=== PATIENT | male | born 1960 | race Caucasian/White ===

== ENCOUNTER 2021-12-14 14:30 | Observation (INO) | payer BC ==
[2021-12-14] MEDS ORDERED: Sodium Chloride 0.9% 1000 ML 1,000 ML IV STA (15:06)
[2021-12-14] MEDS ORDERED: TYLENOL 325 MG PO PRN (15:07)
[2021-12-14 15:57] LABS: INFLUENZA A NEGATIVE (NEGATIVE); INFLUENZA B NEGATIVE (NEGATIVE); RESPIRATORY SYNCTIAL VIRUS NEGATIVE (Negative); SARS-CoV-2 Xpert Express NEGATIVE (NEGATIVE)
[2021-12-14] MEDS ORDERED: HUMALOG SQ PRN (16:16)
--- NOTE | 2021-12-14 16:21 | PCM.HP ---
History of Present Illness - Chief Complaint Chief Complaint: acute renal failure History of Present Illness: is a 61 year old male who was seen in [facility] care today for vomiting, diarrhea and feeling weak and poor since yesterday, cramping pain in the abdomen, no fever. patient has a cardiac history and type 2 diabetes. had shoulder surgery at [facility] 3 weeks ago. - Review of Systems Constitutional: No Fever, No Chills Respiratory: No Cough, No Short Of Breath Cardiac: No Chest Pain, No Edema, No Syncope Abdominal/Gastrointestinal: Abdominal Pain, Nausea, Vomiting, Diarrhea Skin: No Rash All Other Systems: Reviewed and Negative Medications & Allergies Home Medications: Home Medication List Apixaban [Eliquis 5 mg Tablet] 1 tab PO BID 11/26/15 [History Confirmed 11/26/15] Carvedilol 3.125 mg [Coreg 3.125 MG] 1 tab PO DAILY 11/26/15 [History Confirmed 11/26/15] Clonazepam 0.5 mg [Klonopin 0.5 MG] 1 tab PO HS 11/26/15 [History Confirmed 11/26/15] Duloxetine HCl [Cymbalta] 1 cap PO DAILY 11/26/15 [History Confirmed 11/26/15] Fenofibrate 1 tab PO DAILY 11/26/15 [History Confirmed 11/26/15] Pravastatin Sodium 1 tab PO UD 11/26/15 [History Confirmed 11/26/15] Quetiapine Fumarate [Seroquel] 1 tab PO DAILY 11/26/15 [History Confirmed 11/26/15] Ramipril 1.25 mg [Altace 1.25 MG] 1 tab PO DAILY 11/26/15 [History Confirmed 11/26/15] Magnesium Oxide 800 mg PO TID 11/27/15 [History Confirmed 11/27/15] Allergies/Adverse Reactions: Allergies Allergy/AdvReac Type Severity Reaction Status Date / Time morphine AdvReac Intermediate Skin Verified 11/26/15 10:34 Irritation codeine AdvReac Skin Verified 11/26/15 10:34 Irritation - Past Medical History Past Medical History: Yes Neurological History: No Pertinent History ENT History: No Pertinent History Cardiac History: Arrhythmia, High Cholesterol, Hypertension, Other Respiratory History: No Pertinent History Endocrine Medical History: No Pertinent History Musculoskelatal History: Arthritis, Degenerative Disk Disease GI Medical History: Hernia History: No Pertinent History Pyscho-Social History: Anxiety, Depression Male Reproductive Disorders: No Pertinent History - Past Surgical History Past Surgical History: Yes Neuro Surgical History: No Pertinent History Cardiac History: Cardiac Catheterization Respiratory Surgery: No Pertinent History GI Surgical History: Cholecystectomy, Hernia Repair Genitourinary Surgical Hx: No Pertinent History Musculskeletal Surgical Hx: Orthopedic Surgery Male Surgical History: Vasectomy Other Surgical History: left knee, left shoulder, right wrist, - Social History Smoking Status: Former smoker Exposure to second hand smoke: No Alcohol: None Drug Use: none - Physical Exam General Appearance: no apparent distress Neurologic Exam: alert, oriented x 3 Respiratory Exam: normal breath sounds, lungs clear, No respiratory distress Cardiovascular Exam: regular rate/rhythm, normal heart sounds, normal peripheral pulses Gastrointestinal/Abdomen Exam: soft, normal bowel sounds, No tenderness, No mass Skin Exam: normal color, warm, dry, No rash Results - Labs Lab/Micro Results: Lab Results-Last 24 Hours 12/14/21 Range/Units 15:15 Influenza Type A Ag NEGATIVE (NEGATIVE) Influenza Type B Ag NEGATIVE (NEGATIVE) RSV (PCR) NEGATIVE (Negative) SARS-CoV-2 (PCR) NEGATIVE (NEGATIVE) - Radiology Impressions Radiology Exams & Impressions: Radiology Procedures Category Date Time Status ABDOMEN AND PELVIS W/0 CONTRAS [CT] Stat Exams 12/14/21 15:08 Ordered Assessment/Plan (1) Acute renal failure Current Visit: Yes Status: Acute Assessment & Plan: likely secondary to hypovolemic, will rehydrate and recheck labs in the morning (2) Dehydration Current Visit: Yes Status: Acute Assessment & Plan: rehydration ordered Code(s): E86.0 - DEHYDRATION (3) Vomiting and diarrhea Current Visit: Yes Status: Acute Assessment & Plan: ct scan pending, rehydrate and order for c diff and has prn zofran Code(s): R11.10 - VOMITING, UNSPECIFIED; R19.7 - DIARRHEA, UNSPECIFIED (4) Atrial fibrillation Current Visit: Yes Status: Acute Assessment & Plan: continue amiodarone and eliquis, home bp meds continued Code(s): I48.91 - UNSPECIFIED ATRIAL FIBRILLATION (5) Diabetes mellitus Current Visit: Yes Status: Acute Assessment & Plan: sliding scale insulin coverage ordered currently, patient ordered clear liquid diet Code(s): E11.9 - TYPE 2 DIABETES MELLITUS WITHOUT COMPLICATIONS
--- NOTE | 2021-12-14 16:47 | XRAY ---
Indication: Nausea and severe diarrhea. Status post fall. Multiple contiguous axial images obtained through the abdomen and pelvis without contrast. Comparison: November 27, 2015. Lung bases remain clear. Heart not enlarged. New small anterior pericardial effusion/thickening. Noncontrasted stomach and bowel loops nonobstructed. Small and large bowel loops are now mildly fluid distended throughout with fluid leveling favoring ileus versus enterocolitis. Appendix not visualized. Again 1cm hepatic hemangioma and cholecystectomy. No free fluid/air. Remaining liver, pancreas, spleen, adrenal glands, kidneys, ureters, and bladder are unremarkable for noncontrast exam. Minimal scattered aortoiliac calcifications without AAA. Osseous structures intact again with mild osteopenia, mild levorotoscoliosis centered at L3-L4, mild/moderate multilevel degenerative changes again greatest at L2-L5, superior L1 Schmorl node, and L4 bone island. Impression: 1. New diffuse fluid distended small and large bowel loops with fluid leveling, ileus versus enterocolitis. 2. New small pericardial effusion/thickening better evaluated with echocardiogram. 3. Stable hepatic hemangioma and chronic bony findings.
[2021-12-14] MEDS: Sodium Chloride 0.9% W/ 20 mEq KCl/LITER 1,000 ML IV SCH (17:39)
[2021-12-14] MEDS: Seroquel 100 MG PO SCH (21:21)
[2021-12-14] MEDS: ELIQUIS 2.5 MG TABLET PO SCH (21:21)
[2021-12-14] MEDS: Coreg PO SCH (21:22)
[2021-12-14] MEDS: clonazePAM PO SCH (21:22)
[2021-12-14] MEDS: Zofran 4 MG/2 ML VIAL IV PRN (21:22)
[2021-12-15] MEDS: Sodium Chloride 0.9% W/ 20 mEq KCl/LITER 1,000 ML IV SCH ×3 (02:23→22:28)
[2021-12-15 04:26] LABS: Absolute Neutrophil Ct (ANC) 6.93 x10^3/uL (1.4-6.9); Basophil (Absolute #) 0.07 x10^3/uL (0-0.4); Eosinophil % 4.8 % (0.00-5.0); Hematocrit 42.1 % (42-50); Hemoglobin 14.7 g/dL (12.5-18.0); Lymphocyte (Absolute #) 1.77 x10^3/uL (1.0-4.6); Lymphocytes % 17.2 % (24.0-44.0); Mean Cell Volume 85.9 fL (78-100); Mean Corpuscular Hgb Concent. 34.9 g/dL (32-36); Mean Platelet Volume 9.9 fL (7.5-11.0); Monocyte (Absolute #) 0.97 x10^3/uL (0.0-1.3); Monocytes % 9.4 % (0.0-12.0); Neutrophil % 67.2 % (36.0-66.0); Red Cell Distribution Width 13.5 % (11.5-14.0); White Blood Count 10.3 x10^3/uL (4.0-10.5)
[2021-12-15 04:39] LABS: ALBUMIN 4.1 g/dL (3.5-5.0); ANION GAP 16.1 MEQ/L (5-15); Calcium 8.7 mg/dL (8.4-10.2); Creatinine 1 1.57 mg/dL (0.66-1.25); EST GLOMERULAR FILTRATION RATE 47.8 ML/MIN; MAGNESIUM 1.6 mg/dL (1.6-2.3); Potassium 4.6 mmol/L (3.5-5.1); Total Protein 7.2 g/dL (6.3-8.2)
[2021-12-15 04:43] LABS: Platelet Count 204 x10^3/uL (150-450)
--- NOTE | 2021-12-15 08:31 | PCM.NOTE ---
Date and Time: 12/15/21826 Subjective Assessment: Pt is feeling much better. Nauseated last night but not this morning. - Review of Systems Constitutional: No Fever Abdominal/Gastrointestinal: No Vomiting, No Diarrhea Objective Exam General Appearance: no apparent distress, alert Neurologic Exam: oriented x 3, cooperative Skin Exam: normal color, warm, dry, No rash Eye Exam: eyes nml inspection Ears, Nose, Throat Exam: moist mucous membranes Neck Exam: normal inspection Respiratory Exam: normal breath sounds, lungs clear, No crackles/rales, No rhonchi, No wheezing Cardiovascular Exam: regular rate/rhythm, normal heart sounds, No murmur Gastrointestinal/Abdomen Exam: soft, normal bowel sounds, tenderness (RUQ, mild), No mass, No guarding, No rebound Extremity Exam: normal inspection, No pedal edema, No swelling Back Exam: normal inspection, No rash OBJECTIVE DATA Vital Signs: Vital Signs - 24 hr Temp Pulse Resp BP Pulse Ox 12/15/21 04:00 97.1 F 107 H 20 117/58 96 12/14/21 23:27 97.7 F 84 12 93/51 96 12/14/21 18:36 98.9 F 84 20 148/77 98 12/14/21 17:11 98.1 F 76 20 139/71 97 Pain Assessment - Last Documented Pain Intensity 5 Pain Scale Used 0-10 Pain Scale Intake and Output: Intake & Output 12/12/21 12/13/21 12/14/21 12/15/21 11:59 11:59 11:59 11:59 Intake Total 2769 Output Total 2000 Balance 769 Weight 106.2 kg Lab Results: Lab Results-Last 24 Hours 12/14/21 12/14/21 12/14/21 Range/Units 15:15 16:50 20:27 WBC (4.0-10.5) x10^3/uL RBC (4.1-5.6) x10^6/uL Hgb (12.5-18.0) g/dL Hct (42-50) % MCV (78-100) fL MCH (26-32) pg MCHC (32-36) g/dL RDW (11.5-14.0) % Plt Count (150-450) x10^3/uL MPV (7.5-11.0) fL Gran % (36.0-66.0) % Immature Gran % (Auto) (0.00-0.4) % Nucleat RBC Rel Count (0.00-0.1) % Eos # (Auto) (0-0.5) x10^3/uL Immature Gran # (Auto) (0.00-0.03) x10^3u/L Absolute Lymphs (auto) (1.0-4.6) x10^3/uL Absolute Monos (auto) (0.0-1.3) x10^3/uL Absolute Nucleated RBC (0.00-0.01) x10^3u/L Lymphocytes % (24.0-44.0) % Monocytes % (0.0-12.0) % Eosinophils % (0.00-5.0) % Basophils % (0.0-0.4) % Absolute Granulocytes (1.4-6.9) x10^3/uL Basophils # (0-0.4) x10^3/uL Sodium (137-145) mmol/L Potassium (3.5-5.1) mmol/L Chloride (98-107) mmol/L Carbon Dioxide (22-30) mmol/L Anion Gap (5-15) MEQ/L BUN (9-20) mg/dL Creatinine (0.66-1.25) mg/dL Estimated GFR ML/MIN Glucose (74-106) mg/dL POC Glucometer 124 H 132 H (74 to 106) mg/dL Calcium (8.4-10.2) mg/dL Magnesium (1.6-2.3) mg/dL Total Bilirubin (0.2-1.3) mg/dL AST (17-59) U/L ALT (0-50) U/L Alkaline Phosphatase (38-126) U/L Serum Total Protein (6.3-8.2) g/dL Albumin (3.5-5.0) g/dL Influenza Type A Ag NEGATIVE (NEGATIVE) Influenza Type B Ag NEGATIVE (NEGATIVE) RSV (PCR) NEGATIVE (Negative) SARS-CoV-2 (PCR) NEGATIVE (NEGATIVE) 12/15/21 12/15/21 Range/Units 04:21 04:21 WBC 10.3 (4.0-10.5) x10^3/uL RBC 4.90 (4.1-5.6) x10^6/uL Hgb 14.7 (12.5-18.0) g/dL Hct 42.1 (42-50) % MCV 85.9 (78-100) fL MCH 30.0 (26-32) pg MCHC 34.9 (32-36) g/dL RDW 13.5 (11.5-14.0) % Plt Count 204 D (150-450) x10^3/uL MPV 9.9 (7.5-11.0) fL Gran % 67.2 H (36.0-66.0) % Immature Gran % (Auto) 0.7 H (0.00-0.4) % Nucleat RBC Rel Count 0.0 (0.00-0.1) % Eos # (Auto) 0.50 (0-0.5) x10^3/uL Immature Gran # (Auto) 0.07 H (0.00-0.03) x10^3u/L Absolute Lymphs (auto) 1.77 (1.0-4.6) x10^3/uL Absolute Monos (auto) 0.97 (0.0-1.3) x10^3/uL Absolute Nucleated RBC 0.00 (0.00-0.01) x10^3u/L Lymphocytes % 17.2 L (24.0-44.0) % Monocytes % 9.4 (0.0-12.0) % Eosinophils % 4.8 (0.00-5.0) % Basophils % 0.7 (0.0-0.4) % Absolute Granulocytes 6.93 H (1.4-6.9) x10^3/uL Basophils # 0.07 (0-0.4) x10^3/uL Sodium 135 L (137-145) mmol/L Potassium 4.6 (3.5-5.1) mmol/L Chloride 105 (98-107) mmol/L Carbon Dioxide 18 L (22-30) mmol/L Anion Gap 16.1 H (5-15) MEQ/L BUN 31 H (9-20) mg/dL Creatinine 1.57 H (0.66-1.25) mg/dL Estimated GFR 47.8 ML/MIN Glucose 126 H (74-106) mg/dL POC Glucometer (74 to 106) mg/dL Calcium 8.7 (8.4-10.2) mg/dL Magnesium 1.6 (1.6-2.3) mg/dL Total Bilirubin 1.00 (0.2-1.3) mg/dL AST 20 (17-59) U/L ALT 14 (0-50) U/L Alkaline Phosphatase 50 (38-126) U/L Serum Total Protein 7.2 (6.3-8.2) g/dL Albumin 4.1 (3.5-5.0) g/dL Influenza Type A Ag (NEGATIVE) Influenza Type B Ag (NEGATIVE) RSV (PCR) (Negative) SARS-CoV-2 (PCR) (NEGATIVE) Radiology Exams: Radiology Procedures Category Date Time Status ABDOMEN AND PELVIS W/0 CONTRAS [CT] Stat Exams 12/14/21 16:13 Completed Assessment/Plan (1) Acute renal failure Current Visit: Yes Status: Acute Qualifiers: Acute renal failure type: with acute renal cortical necrosis Qualified Code(s): N17.1 - Acute kidney failure with acute cortical necrosis Assessment & Plan: Improved today, eGFR from 30.8 to 47.8 this morning. Was >60 in 2019. Will continue IVF and recheck in a.m. (2) Atrial fibrillation Current Visit: Yes Status: Chronic Code(s): I48.91 - UNSPECIFIED ATRIAL FIBRILLATION (3) Dehydration Current Visit: Yes Status: Acute Code(s): E86.0 - DEHYDRATION (4) Diabetes mellitus Current Visit: Yes Status: Chronic Qualifiers: Diabetes mellitus type: type 2 Diabetes mellitus manager intermediate insulin use: without retirement use Diabetes mellitus complication status: without complication Qualified Code(s): E11.9 - Type 2 diabetes mellitus without complications Code(s): E11.9 - TYPE 2 DIABETES MELLITUS WITHOUT COMPLICATIONS
[2021-12-15] MEDS: NORVASC 5 MG PO SCH (08:32)
[2021-12-15] MEDS: Cordarone 200 MG PO SCH (08:32)
[2021-12-15] MEDS: Altace 1.25 MG PO SCH (08:32)
[2021-12-15] MEDS: Cymbalta 30 MG Capsule PO SCH (08:32)
[2021-12-15] MEDS: Coreg PO SCH ×2 (08:33→21:12)
[2021-12-15] MEDS: ELIQUIS 2.5 MG TABLET PO SCH ×2 (08:33→21:12)
[2021-12-15] MEDS ORDERED: ATARAX 25 MG PO PRN (09:40)
[2021-12-15] MEDS ORDERED: NON-FORMULARY ITEM (Fenofibrate [Fenofibrate] 160 MG Tablet) PO SCH (10:00)
[2021-12-15] MEDS ORDERED: NON-FORMULARY ITEM (Pravastatin Sodium [Pravastatin Sodium] 10 MG Tablet) PO SCH (10:00)
[2021-12-15] MEDS: Zetia 10 MG PO SCH (10:33)
[2021-12-15] MEDS: Zocor 10MG PO SCH (10:33)
[2021-12-15] MEDS: Tricor 145 MG PO SCH (10:33)
[2021-12-15 20:02] LABS: 027 TOX PROD PRESUMPTIVE NEGATIVE (NEGATIVE); TOXIGENIC C. DIFF ORG NEGATIVE (NEGATIVE)
[2021-12-15] MEDS: Seroquel 100 MG PO SCH (21:11)
[2021-12-15] MEDS: clonazePAM PO SCH (21:13)
[2021-12-16 04:46] LABS: Absolute Neutrophil Ct (ANC) 3.87 x10^3/uL (1.4-6.9); Basophil (Absolute #) 0.06 x10^3/uL (0-0.4); Eosinophil % 6.2 % (0.00-5.0); Eosinophil (Absolute #) 0.44 x10^3/uL (0-0.5); Hemoglobin 13.5 g/dL (12.5-18.0); Lymphocyte (Absolute #) 1.94 x10^3/uL (1.0-4.6); Lymphocytes % 27.4 % (24.0-44.0); Mean Cell Volume 86.7 fL (78-100); Mean Corpuscular Hgb Concent. 34.6 g/dL (32-36); Mean Platelet Volume 9.7 fL (7.5-11.0); Monocytes % 9.9 % (0.0-12.0); Neutrophil % 54.9 % (36.0-66.0); Platelet Count 194 x10^3/uL (150-450); Red Cell Distribution Width 13.6 % (11.5-14.0); White Blood Count 7.1 x10^3/uL (4.0-10.5)
[2021-12-16 05:02] LABS: ANION GAP 13.7 MEQ/L (5-15); BLOOD UREA NITROGEN 17 mg/dL (9-20); CHLORIDE 106 mmol/L (98-107); Calcium 8.9 mg/dL (8.4-10.2); Carbon Dioxide 23 mmol/L (22-30); Creatinine 1 1.28 mg/dL (0.66-1.25); EST GLOMERULAR FILTRATION RATE > 60.0 ML/MIN; Glucose 114 mg/dL (74-106); Potassium 4.7 mmol/L (3.5-5.1); SODIUM 137 mmol/L (137-145)
[2021-12-16] MEDS: Zofran 4 MG/2 ML VIAL IV PRN (08:09)
--- NOTE | 2021-12-16 08:57 | PCM.DS ---
Discharge Summary Date of Admission: 12/14/21 14:30 Admitting Physician: JIMI HUFFMAN Primary Care Provider: JIMI HUFFMAN Allergies Allergies morphine Adverse Reaction (Intermediate, Verified 11/26/15 10:34) Skin Irritation red streaks up arm codeine Adverse Reaction (Verified 11/26/15 10:34) Skin Irritation red streaks up arm Hospital Summary - Hospital Course Hospital Course: patient admitted with acute renal failure, diarrhea and vomiting, has only had 1 stool since admission and no vomiting, tolerating po intake now and overall feeling much better. bun/cr returned to baseline with rehydration, patient has a history of cholecystectomy and fundoplication, prone to loose stools chronically. has had several colonoscopies per patient, uncertain when last was done, was in [place]. - Vitals & Intake/Output Vital Signs: Vital Signs Temperature 97.1 F 12/16/21 04:00 Pulse Rate 66 12/16/21 04:00 Respiratory Rate 18 12/16/21 04:00 Blood Pressure 130/67 12/16/21 04:00 O2 Sat by Pulse Oximetry 98 12/16/21 04:00 Intake & Output: Intake & Output 12/13/21 12/14/21 12/15/21 12/16/21 11:59 11:59 11:59 11:59 Intake Total 3569 3828 Output Total 2900 3650 Balance 669 178 Weight 106.2 kg - Lab Result Diagrams: 12/16/21 04:40 12/16/21 04:40 Lab Results-Last 24 Hrs: Lab Results-Last 24 Hours 12/14/21 12/15/21 12/15/21 Range/Units 19:14 08:34 11:51 WBC (4.0-10.5) x10^3/uL RBC (4.1-5.6) x10^6/uL Hgb (12.5-18.0) g/dL Hct (42-50) % MCV (78-100) fL MCH (26-32) pg MCHC (32-36) g/dL RDW (11.5-14.0) % Plt Count (150-450) x10^3/uL MPV (7.5-11.0) fL Gran % (36.0-66.0) % Immature Gran % (Auto) (0.00-0.4) % Nucleat RBC Rel Count (0.00-0.1) % Eos # (Auto) (0-0.5) x10^3/uL Immature Gran # (Auto) (0.00-0.03) x10^3u/L Absolute Lymphs (auto) (1.0-4.6) x10^3/uL Absolute Monos (auto) (0.0-1.3) x10^3/uL Absolute Nucleated RBC (0.00-0.01) x10^3u/L Lymphocytes % (24.0-44.0) % Monocytes % (0.0-12.0) % Eosinophils % (0.00-5.0) % Basophils % (0.0-0.4) % Absolute Granulocytes (1.4-6.9) x10^3/uL Basophils # (0-0.4) x10^3/uL Sodium (137-145) mmol/L Potassium (3.5-5.1) mmol/L Chloride (98-107) mmol/L Carbon Dioxide (22-30) mmol/L Anion Gap (5-15) MEQ/L BUN (9-20) mg/dL Creatinine (0.66-1.25) mg/dL Estimated GFR ML/MIN Glucose (74-106) mg/dL POC Glucometer 105 (74 to 106) mg/dL Hemoglobin A1c 4.68 (4.5-6.0) % Calcium (8.4-10.2) mg/dL C. difficile Screen NEGATIVE (NEGATIVE) C.difficile 027-NAP1-B1 PRESUMPTIVE NEGATIVE (NEGATIVE) 12/15/21 12/16/21 12/16/21 Range/Units 17:19 04:40 04:40 WBC 7.1 (4.0-10.5) x10^3/uL RBC 4.50 (4.1-5.6) x10^6/uL Hgb 13.5 (12.5-18.0) g/dL Hct 39.0 L (42-50) % MCV 86.7 (78-100) fL MCH 30.0 (26-32) pg MCHC 34.6 (32-36) g/dL RDW 13.6 (11.5-14.0) % Plt Count 194 (150-450) x10^3/uL MPV 9.7 (7.5-11.0) fL Gran % 54.9 (36.0-66.0) % Immature Gran % (Auto) 0.8 H (0.00-0.4) % Nucleat RBC Rel Count 0.0 (0.00-0.1) % Eos # (Auto) 0.44 (0-0.5) x10^3/uL Immature Gran # (Auto) 0.06 H (0.00-0.03) x10^3u/L Absolute Lymphs (auto) 1.94 (1.0-4.6) x10^3/uL Absolute Monos (auto) 0.70 (0.0-1.3) x10^3/uL Absolute Nucleated RBC 0.00 (0.00-0.01) x10^3u/L Lymphocytes % 27.4 (24.0-44.0) % Monocytes % 9.9 (0.0-12.0) % Eosinophils % 6.2 H (0.00-5.0) % Basophils % 0.8 (0.0-0.4) % Absolute Granulocytes 3.87 (1.4-6.9) x10^3/uL Basophils # 0.06 (0-0.4) x10^3/uL Sodium 137 (137-145) mmol/L Potassium 4.7 (3.5-5.1) mmol/L Chloride 106 (98-107) mmol/L Carbon Dioxide 23 (22-30) mmol/L Anion Gap 13.7 (5-15) MEQ/L BUN 17 (9-20) mg/dL Creatinine 1.28 H (0.66-1.25) mg/dL Estimated GFR > 60.0 ML/MIN Glucose 114 H (74-106) mg/dL POC Glucometer 107 H (74 to 106) mg/dL Hemoglobin A1c (4.5-6.0) % Calcium 8.9 (8.4-10.2) mg/dL C. difficile Screen (NEGATIVE) C.difficile 027-NAP1-B1 (NEGATIVE) 12/16/21 Range/Units 07:37 WBC (4.0-10.5) x10^3/uL RBC (4.1-5.6) x10^6/uL Hgb (12.5-18.0) g/dL Hct (42-50) % MCV (78-100) fL MCH (26-32) pg MCHC (32-36) g/dL RDW (11.5-14.0) % Plt Count (150-450) x10^3/uL MPV (7.5-11.0) fL Gran % (36.0-66.0) % Immature Gran % (Auto) (0.00-0.4) % Nucleat RBC Rel Count (0.00-0.1) % Eos # (Auto) (0-0.5) x10^3/uL Immature Gran # (Auto) (0.00-0.03) x10^3u/L Absolute Lymphs (auto) (1.0-4.6) x10^3/uL Absolute Monos (auto) (0.0-1.3) x10^3/uL Absolute Nucleated RBC (0.00-0.01) x10^3u/L Lymphocytes % (24.0-44.0) % Monocytes % (0.0-12.0) % Eosinophils % (0.00-5.0) % Basophils % (0.0-0.4) % Absolute Granulocytes (1.4-6.9) x10^3/uL Basophils # (0-0.4) x10^3/uL Sodium (137-145) mmol/L Potassium (3.5-5.1) mmol/L Chloride (98-107) mmol/L Carbon Dioxide (22-30) mmol/L Anion Gap (5-15) MEQ/L BUN (9-20) mg/dL Creatinine (0.66-1.25) mg/dL Estimated GFR ML/MIN Glucose (74-106) mg/dL POC Glucometer 106 (74 to 106) mg/dL Hemoglobin A1c (4.5-6.0) % Calcium (8.4-10.2) mg/dL C. difficile Screen (NEGATIVE) C.difficile 027-NAP1-B1 (NEGATIVE) Micro Results-Entire Visit: Accuchecks Date 12/15/21 Time 21:25 - Radiology Exams Ordered Rad Exams-Entire Visit: Radiology Procedures Category Date Time Status ABDOMEN AND PELVIS W/0 CONTRAS [CT] Stat Exams 12/14/21 16:13 Completed Discharge Exam General Appearance: no apparent distress Neurologic Exam: alert, oriented x 3 Respiratory Exam: normal breath sounds, lungs clear, No respiratory distress Cardiovascular Exam: regular rate/rhythm, normal heart sounds Gastrointestinal/Abdomen Exam: soft, No tenderness, No mass Extremity Exam: normal inspection, normal range of motion Skin Exam: normal color, warm, dry Final Diagnosis/Problem List - Final Discharge Diagnosis/Problem (1) Acute renal failure Current Visit: Yes Status: Acute Assessment & Plan: resolved with rehydration (2) Dehydration Current Visit: Yes Status: Acute Assessment & Plan: resolved Code(s): E86.0 - DEHYDRATION (3) Vomiting and diarrhea Current Visit: Yes Status: Acute Assessment & Plan: likely viral in etiology, resolved Code(s): R11.10 - VOMITING, UNSPECIFIED; R19.7 - DIARRHEA, UNSPECIFIED (4) Atrial fibrillation Current Visit: Yes Status: Chronic Code(s): I48.91 - UNSPECIFIED ATRIAL FIBRILLATION (5) Diabetes mellitus Current Visit: Yes Status: Chronic Code(s): E11.9 - TYPE 2 DIABETES MELLITUS WITHOUT COMPLICATIONS - Discharge Disposition: Home, Self-Care Condition: Stable Prescriptions: New Ondansetron ODT 4 MG [Zofran Odt 4 mg] 4 mg PO Q6H PRN PRN #30 tablet PRN Reason: Nausea Continue Pravastatin Sodium 10 tab PO QAM Fenofibrate 160 mg PO DAILY Apixaban [Eliquis 5 mg Tablet] 5 mg PO BID Duloxetine HCl [Cymbalta] 60 mg PO DAILY Quetiapine Fumarate [Seroquel] 300 mg PO HS Ramipril 1.25 mg [Altace 1.25 MG] 2.5 mg PO QAM Clonazepam 0.5 mg [Klonopin 0.5 MG] 0.5 mg PO HS Metformin HCl 500 mg [Glucophage 500 MG] 500 mg PO BIDWM Hydroxyzine HCl 25 mg [Atarax 25 mg] 25 mg PO TIDPRN PRN PRN Reason: Anxiety Ezetimibe 10 mg [Zetia 10 MG] 10 mg PO QAM Carvedilol [Coreg ] 6.25 mg PO BID Amlodipine Besylate 5 mg [Norvasc 5 mg] 5 mg PO DAILY Amiodarone HCl 200 mg [Cordarone 200 MG] 200 mg PO DAILY Semaglutide [Ozempic] 1 mg SQ FR Follow up with: JIMI HUFFMAN MD [Primary Care Provider] -
[2021-12-16] MEDS: Zetia 10 MG PO SCH (10:15)
[2021-12-16] MEDS: Zocor 10MG PO SCH (10:15)
[2021-12-16] MEDS: Altace 1.25 MG PO SCH (10:16)
[2021-12-16] MEDS: Tricor 145 MG PO SCH (10:16)
[2021-12-16] MEDS: NORVASC 5 MG PO SCH (10:16)
[2021-12-16] MEDS: Cymbalta 30 MG Capsule PO SCH (10:16)
[2021-12-16] MEDS: Cordarone 200 MG PO SCH (10:16)
[2021-12-16] MEDS: Coreg PO SCH (10:16)
[2021-12-16] MEDS: ELIQUIS 2.5 MG TABLET PO SCH (10:16)
[2021-12-16 12:46] VITALS: BP 106/56; PULSE 59; O2SAT 98
== END 2021-12-16 15:26 | disposition home or self-care (01) ==
LOC: MED SURG 14:30
PROVIDERS: ADMIT Family Medicine; ATTEND Family Medicine
DX: N17.9 Acute kidney failure, unspecified (principal); E86.0 Dehydration; R11.10 Vomiting, unspecified; R19.7 Diarrhea, unspecified; I48.91 Unspecified atrial fibrillation; E11.9 Type 2 diabetes mellitus without complications; I31.3 Pericardial effusion (noninflammatory); I10 Essential (primary) hypertension; Z79.899 Other long term (current) drug therapy; Z20.828 Contact with and (suspected) exposure to other viral communicable diseases
CPT/HCPCS: 0241U; 36415; 74176; 80048; 80053; 82947; 83036; 83735; 85025; 87493; G0378; J2405; A9270-GY

== ENCOUNTER 2022-01-28 06:09 | Day surgery (SDC) | payer BC ==
[2022-01-28] MEDS ORDERED: Lactated Ringers 1,000 ML IV SCH (07:00)
[2022-01-28] MEDS ORDERED: Versed 2 MG/2 ML Injection ONE (08:01)
[2022-01-28] MEDS ORDERED: DIPRIVAN 200 MG/20 ML IV ONE ×2 (08:01→08:34)
[2022-01-28 09:15] VITALS: PULSE 52; O2SAT 97
[2022-01-28 09:53] VITALS: BP 129/62
--- NOTE | 2022-01-28 12:42 | OP ---
SURGERY DATE/TIME: 01/28/2022 0816 PREOPERATIVE DIAGNOSES: 1) Screening colonoscopy. 2) History of colon polyps. POSTOPERATIVE DIAGNOSIS: Normal colon. PROCEDURE: Colonoscopy. SURGEON: Ezra Robins M.D. ANESTHESIA: MAC by Patel Cantu CRNA. ESTIMATED BLOOD LOSS: None. SPECIMENS: None. DESCRIPTION OF PROCEDURE: After informed written consent was obtained, the patient was taken to the endoscopy suite. He was placed in left lateral decubitus position and anesthesia was titrated to desired level of consciousness. Digital rectal exam showed normal sphincter tone and no internal lesions. The scope was inserted into the rectum and sequentially the entire colonic mucosa was traversed. The level of cecum was reached and verified with direct visualization of the ileocecal valve. Upon withdrawal careful mucosal inspection revealed no gross abnormalities. Prep was noted to be fair. Prior to withdrawal retroflexion showed no internal lesions. The scope was removed. The patient was transferred to the recovery room in good condition.
== END 2022-01-28 09:30 | disposition home or self-care (01) ==
LOC: SDC 06:09
PROVIDERS: ATTEND Family Medicine
DX: Z12.11 Encounter for screening for malignant neoplasm of colon (principal); Z86.010 Personal history of colon polyps; E11.9 Type 2 diabetes mellitus without complications
CPT/HCPCS: 82947; J2250; J2704